=== PATIENT | female | born 1990 | race African-American/Black ===

== ENCOUNTER 2017-04-25 11:17 | Emergency (ER) | payer SELFPAY | END 2017-04-25 13:04 | disposition home or self-care (01) | LOC: ERS 11:17 | DX: M54.5 Low back pain (principal) | CPT/HCPCS: 99283 ==

== ENCOUNTER 2017-09-12 19:26 | Emergency (ER) | payer SELFPAY ==
--- NOTE | 2017-09-12 20:08 | RAD ---
PA AND LATERAL CHEST RADIOGRAPH: Date: 09-12-17 History: Hemoptysis. Comparison: None available. FINDINGS: Cardiac silhouette and pulmonary vasculature are within normal limits. The lungs are clear. Osseous s tructures are intact. IMPRESSION: No acute cardiopulmonary process. POS: [facility]
[2017-09-12 20:35] LABS: #Basophils 0.1 thou/uL (0.0-0.2); #Eosinphils 0.2 thou/uL (0.0-0.7); #Lymphocytes 2.1 thou/uL (1.20-3.40); #Monocytes 0.6 thou/uL (0.11-0.59); #Neutrophils 3.9 thou/uL (1.40-6.50); %Basophils 0.9 % (0.0-1.0); %Eosinophils 2.3 % (0.0-10.0); %Lymphocytes 31.2 % (21.0-51.0); %Monocytes 8.5 % (0.0-10.0); %Neutrophils 57.1 % (42.0-75.0); Hemoglobin 11.3 g/dL (12.0-16.0); Mean Corpuscular Hemoglobin 25.8 pg (27.0-31.0); Mean Corpuscular Volume 80.4 fl (81.0-99.0); Mean Platelet Volume 8.1 fL (7.4-10.4); Platelet Count 339 thou/uL (130-400); RBC Distribution Width 14.9 % (11.5-14.5); Red Blood Cell (RBC) Count 4.39 mill/uL (4.20-5.40); White Blood Cell (WBC) Count 6.8 thou/uL (4.8-10.8)
[2017-09-12 20:43] LABS: Prothrombin Time 13.5 SEC (12.0-14.7)
[2017-09-12 20:58] LABS: ALT (SGPT) 16 U/L (8-55); AST (SGOT) 19 U/L (5-34); Alkaline Phosphatase 65 U/L (40-150); Anion Gap 12 mmol/L (10-20); BUN (Urea Nitrogen) 6 mg/dL (7.0-18.7); Bilirubin, Total 0.2 mg/dL (0.2-1.2); Calc. Creatinine Clearance 0 mL/min (70-130); Carbon Dioxide 21 mmol/L (22-29); Chloride 107 mmol/L (98-107); Estimated GFR-MDRD Greater than 90; Glucose 106 mg/dL (70-105); Potassium 3.5 mmol/L (3.5-5.1); Sodium 136 mmol/L (136-145)
== END 2017-09-12 21:13 | disposition home or self-care (01) ==
LOC: ERS 19:26
DX: R04.2 Hemoptysis (principal)
CPT/HCPCS: 36415; 71046; 80053; 85025; 85610; 85730

== ENCOUNTER 2018-02-07 13:19 | Emergency (ER) | payer OTHER, SELFPAY ==
[2018-02-07] MEDS ORDERED: Ibuprofen 200 MG TAB ONE (14:33)
== END 2018-02-07 14:54 | disposition home or self-care (01) ==
LOC: ERS 13:19
DX: M25.462 Effusion, left knee (principal)
CPT/HCPCS: 99283

== ENCOUNTER 2018-04-22 07:45 | Emergency (ER) | payer OTHER ==
[2018-04-22] MEDS ORDERED: Lidocaine 1% w/Epinephrine 1:100K 20 ML VIAL ONE (07:52)
== END 2018-04-22 14:34 | disposition home or self-care (01) ==
LOC: ERS 07:45
DX: L02.412 Cutaneous abscess of left axilla (principal)
CPT/HCPCS: 10060; J2001

== ENCOUNTER 2018-04-25 11:44 | Emergency (ER) | payer OTHER | END 2018-04-25 12:45 | disposition home or self-care (01) | LOC: ERS 11:44 | DX: Z48.817 Encounter for surgical aftercare following surgery on the skin and subcutaneous tissue (principal) | CPT/HCPCS: 99282 ==

== ENCOUNTER 2018-05-08 14:45 | Emergency (ER) | payer OTHER ==
[2018-05-08] MEDS ORDERED: Meclizine HCl 25 MG TAB ONE (15:32)
[2018-05-08 16:06] LABS: Bilirubin Negative (Negative); Blood, Urine Negative (Negative); Clarity CLEAR (Clear); Glucose, Urine (Dipstick) Negative (Negative); Leukocyte Moderate (Negative); Nitrite Negative (Negative); Protein, Urine (Dipstick) Negative (Neg-Trace); Specific Gravity, Urine 1.022 (1.002-1.036); Urobilinogen 0.2 mg/dL (0.2-1.0); pH, Urine 5.5 (5.0-9.0)
[2018-05-08 16:08] LABS: Pregnancy Test - Urine (BHCG) Negative (Negative); Pregu Control Background? CLEAR/WHITE (CLR/WHITE); Pregu Control Bar Appear? YES (CONTROL BAR); Specific Gravity 1.022 (1.002-1.036)
[2018-05-08 16:11] LABS: Bacteria/HPF None Seen HPF (None Seen); Hyaline Casts/LPF 0-3 HYALINE CAST LPF (0-3 Hyaline); RBC/HPF 0-3 HPF (0-3); WBC/HPF 21-50 HPF (0-3)
[2018-05-08] MEDS ORDERED: Ondansetron ODT 4 MG TAB ONE (17:05)
--- NOTE | 2018-05-14 23:07 | EKG ---
Test Reason : Blood Pressure : / mmHG Vent. Rate : 064 BPM Atrial Rate : 064 BPM P-R Int : 176 ms QRS Dur : 102 ms QT Int : 412 ms P-R-T Axes : -08 030 027 degrees QTc Int : 425 ms Sinus rhythm with marked sinus arrhythmia Otherwise normal ECG Confirmed by LALA WYNN ([id number]), social media editor WAGNER LEDEZMA ([id number] on 05/14/2018 11:06:57 PM Referred By: Confirmed By:LALA WYNN
== END 2018-05-08 17:15 | disposition home or self-care (01) ==
LOC: ERS 14:45
DX: H81.10 Benign paroxysmal vertigo, unspecified ear (principal)
CPT/HCPCS: 81003; 81015; 81025; 93005; Q0162

== ENCOUNTER 2018-08-14 22:45 | Emergency (ER) | payer OTHER ==
--- NOTE | 2018-08-14 23:21 | RAD ---
CHEST TWO VIEWS: HISTORY: Chest pain. COMPARISON: 09/12/2017 FINDINGS: Heart size is normal. Lungs are clear. IMPRESSION: 1. No acute intrathoracic disease. 2. Stable from prior study. POS: [facility]
[2018-08-15] MEDS ORDERED: Ketorolac Tromethamine 60 MG/2 ML VIAL ONE (00:09)
[2018-08-15] MEDS ORDERED: diphenhydrAMINE 25 MG CAP ONE (00:10)
[2018-08-15] MEDS ORDERED: Ondansetron ODT 4 MG TAB ONE (00:10)
== END 2018-08-15 00:44 | disposition home or self-care (01) ==
LOC: ERS 22:45
DX: M94.0 Chondrocostal junction syndrome [Tietze] (principal); R07.89 Other chest pain; R51 Headache; F43.9 Reaction to severe stress, unspecified
CPT/HCPCS: 71046; 93005; 96372; J1885; Q0162; Q0163

== ENCOUNTER 2018-12-08 12:34 | Emergency (ER) | payer OTHER | END 2018-12-08 13:31 | disposition home or self-care (01) | LOC: ERS 12:34 | DX: L02.211 Cutaneous abscess of abdominal wall (principal) | CPT/HCPCS: 99282 ==

== ENCOUNTER 2019-01-10 16:16 | Emergency (ER) | payer OTHER ==
[~2019-01-10 16:16] MED LIST: ISOVUE-370 76%-LOCM 1 ML ONE
[2019-01-10] MEDS ORDERED: Ondansetron PF 4 MG/2 ML Vial ONE (17:14)
[2019-01-10] MEDS ORDERED: Morphine 4 MG/ML VIAL ONE (17:14)
[2019-01-10 17:32] LABS: #Eosinphils 0.1 thou/uL (0.0-0.7); #Monocytes 0.4 thou/uL (0.11-0.59); #Neutrophils 7.1 thou/uL (1.40-6.50); %Basophils 0.3 % (0.0-1.0); %Eosinophils 0.6 % (0.0-10.0); %Lymphocytes 21.1 % (21.0-51.0); %Monocytes 4.5 % (0.0-10.0); %Neutrophils 73.4 % (42.0-75.0); Hemoglobin 14.2 g/dL (12.0-16.0); Mean Corpuscular HGB CONC 31.1 g/dL (32.0-36.0); Mean Corpuscular Hemoglobin 26.4 pg (27.0-31.0); Mean Corpuscular Volume 84.8 fL (78.0-98.0); Mean Platelet Volume 9.1 fL (7.4-10.4); Platelet Count 305 thou/uL (130-400); RBC Distribution Width 14.4 % (11.5-14.5); Red Blood Cell (RBC) Count 5.38 mill/uL (4.20-5.40); White Blood Cell (WBC) Count 9.7 thou/uL (4.8-10.8)
[2019-01-10 17:55] LABS: BHCG - Serum Negative (NEGATIVE); Pregs Control Background? CLEAR/WHITE (CLR/WHITE); Pregs Control Bar Appear? YES (CONTROL BAR)
--- NOTE | 2019-01-10 18:23 | CT ---
CT Abdomen Pelvis W Con: 01/10/2019 4:56 PM CLINICAL INFORMATION: Panic attack. Abdominal and back pain COMPARISON: None. TECHNIQUE: Multiple contiguous axial images were obtained and a CT of the abdomen and pelvis with IV contrast. C oronal reformats were performed. FINDINGS: Lower Chest: within normal limits. Abdomen: Liver: within normal limits. Bile Ducts: Normal caliber. Gallbladder: No calcified gallstones. Normal caliber wall. Pancreas: within normal limits. Spleen: within normal limits. Adrenals: within normal limits. Kidneys: within normal limits. Pelvis: Reproductive Organs: No pelvic masses. A tampon is seen in the vagina. Ureters: within normal limits. Bladder: within normal limits. Peritoneum: No free air no fluid collection. A small amount of free fluid in the pelvis is likely phy siologic. Bowel: Normal caliber. Normal appendix Mesentery and Retroperitoneum: No enlarged mesenteric or retroperitoneal lymph nodes. Vessels: Normal. Abdominal Wall: within normal limits. Bones: Within normal limits IMPRESSION: No evidence of acute intraabdominal\pelvic abnormality.
[2019-01-10 19:10] LABS: ALT (SGPT) 18 U/L (8-55); AST (SGOT) 29 U/L (5-34); Albumin 3.6 g/dL (3.5-5.0); Alkaline Phosphatase 47 U/L (40-150); Anion Gap 14 mmol/L (10-20); BUN (Urea Nitrogen) 8 mg/dL (7.0-18.7); Bilirubin, Total 0.2 mg/dL (0.2-1.2); Calc. Creatinine Clearance 0 mL/min (70-130); Calcium 8.4 mg/dL (7.8-10.44); Carbon Dioxide 18 mmol/L (22-29); Chloride 109 mmol/L (98-107); Estimated GFR-MDRD Greater than 90; Globulin 3.2 g/dL (2.4-3.5); Glucose 93 mg/dL (70-105); Lipase 18 U/L (8-78); Potassium 5.2 mmol/L (3.5-5.1); Protein, Total 6.8 g/dL (6.0-8.3); Sodium 136 mmol/L (136-145)
[2019-01-10 19:21] LABS: Bilirubin Negative (Negative); Blood, Urine 2+ (Negative); Clarity Clear (Clear); Glucose, Urine (Dipstick) Normal (Negative); Leukocyte 25 Leu/uL (Negative); Nitrite Negative (Negative); Protein, Urine (Dipstick) Negative (Neg-Trace); RBC/HPF 21-50 HPF (0-3); Squamous Epithelial 0-3 HPF (0-3); Urobilinogen Normal mg/dL (Less than 2)
== END 2019-01-10 19:54 | disposition home or self-care (01) ==
LOC: ERS 16:16
DX: R10.30 Lower abdominal pain, unspecified (principal); F41.0 Panic disorder [episodic paroxysmal anxiety]
CPT/HCPCS: 36415; 74177; 80053; 81001; 83690; 84703; 85025; 93005; 96361; 96374; 96375; J2270; J2405; Q9966

== ENCOUNTER 2019-08-28 08:48 | Emergency (ER) | payer OTHER, SELFPAY ==
[2019-08-28] MEDS ORDERED: Acetaminophen 500 MG TAB ONE (09:07)
== END 2019-08-28 09:46 | disposition home or self-care (01) ==
LOC: ERS 08:48
DX: J11.1 Influenza due to unidentified influenza virus with other respiratory manifestations (principal)
CPT/HCPCS: 99283

== ENCOUNTER 2021-05-18 17:10 | Emergency (ER) | payer SELFPAY ==
[2021-05-18] MEDS ORDERED: Ibuprofen 800 MG TAB ONE (17:47)
== END 2021-05-18 17:55 | disposition home or self-care (01) ==
LOC: ERS 17:10
DX: K03.81 Cracked tooth (principal); K02.9 Dental caries, unspecified
CPT/HCPCS: 99282

== ENCOUNTER 2022-01-26 04:40 | Emergency (ER) | payer SELFPAY ==
[2022-01-26] MEDS ORDERED: Ketorolac Tromethamine 30 MG/ML VIAL ONE (05:09)
== END 2022-01-26 05:35 | disposition home or self-care (01) ==
LOC: ERS 04:40
DX: S39.012A Strain of muscle, fascia and tendon of lower back, initial encounter (principal); X50.1XXA Overexertion from prolonged static or awkward postures, initial encounter
CPT/HCPCS: 96372; 99283; J1885

== ENCOUNTER 2022-05-09 10:27 | Emergency (ER) | payer SELFPAY ==
[2022-05-09 12:22] LABS: #Eosinphils 0.1 thou/uL (0.0-0.7); #Lymphocytes 1.9 thou/uL (1.20-3.40); #Monocytes 0.3 thou/uL (0.11-0.59); #Neutrophils 3.8 thou/uL (1.40-6.50); %Basophils 0.3 % (0.0-1.0); %Eosinophils 1.7 % (0.0-10.0); %Lymphocytes 30.5 % (21.0-51.0); %Monocytes 5.5 % (0.0-10.0); %Neutrophils 61.9 % (42.0-75.0); Hemoglobin 11.6 g/dL (12.0-16.0); Mean Corpuscular HGB CONC 30.4 g/dL (32.0-36.0); Mean Corpuscular Hemoglobin 25.3 pg (27.0-31.0); Mean Corpuscular Volume 83.1 fl (78.0-98.0); Mean Platelet Volume 8.6 fL (7.4-10.4); Platelet Count 321 thou/uL (130-400); RBC Distribution Width 15.3 % (11.5-14.5); Red Blood Cell (RBC) Count 4.57 mill/uL (4.20-5.40); White Blood Cell (WBC) Count 6.2 thou/uL (4.8-10.8)
[2022-05-09 12:32] LABS: ALT (SGPT) 22 U/L (8-55); AST (SGOT) 19 U/L (5-34); Alkaline Phosphatase 73 U/L (40-110); Anion Gap 11 mmol/L (10-20); BUN (Urea Nitrogen) 6 mg/dL (7.0-18.7); Bilirubin, Total 0.3 mg/dL (0.2-1.2); Calc. Creatinine Clearance 0 mL/min (70-130); Calcium 9.2 mg/dL (7.8-10.44); Carbon Dioxide 28 mmol/L (22-29); Chloride 101 mmol/L (98-107); Estimated GFR 112; Globulin 3.5 g/dL (2.4-3.5); Glucose 91 mg/dL (70-105); Protein, Total 7.5 g/dL (6.0-8.3); Sodium 136 mmol/L (136-145)
== END 2022-05-09 12:07 | disposition home or self-care (01) ==
LOC: ERS 10:27
DX: I10 Essential (primary) hypertension (principal)
CPT/HCPCS: 36415; 80053; 84484; 85025; 99283

== ENCOUNTER 2022-10-29 22:26 | Emergency (ER) | payer BC, SELFPAY ==
[2022-10-29 23:48] LABS: #Lymphocytes 0.7 thou/uL (1.20-3.40); #Monocytes 0.3 thou/uL (0.11-0.59); #Neutrophils 6.1 thou/uL (1.40-6.50); %Basophils 0.4 % (0.0-1.0); %Eosinophils 0.5 % (0.0-10.0); %Lymphocytes 9.7 % (21.0-51.0); %Monocytes 3.8 % (0.0-10.0); %Neutrophils 85.6 % (42.0-75.0); Hemoglobin 11.7 g/dL (12.0-16.0); Mean Corpuscular HGB CONC 30.8 g/dL (32.0-36.0); Mean Corpuscular Hemoglobin 24.8 pg (27.0-31.0); Mean Corpuscular Volume 80.7 fl (78.0-98.0); Platelet Count 292 10x3/uL (130-400); RBC Distribution Width 15.8 % (11.5-14.5); White Blood Cell (WBC) Count 7.1 10x3/uL (4.8-10.8)
[2022-10-29 23:54] LABS: BHCG - Serum Negative (NEGATIVE); Pregs Control Background? CLEAR/WHITE (CLR/WHITE); Pregs Control Bar Appear? YES (CONTROL BAR)
[2022-10-30 00:11] LABS: ALT (SGPT) 22 U/L (8-55); AST (SGOT) 23 U/L (5-34); Albumin 4.2 g/dL (3.5-5.0); Alkaline Phosphatase 74 U/L (40-110); Anion Gap 13 mmol/L (10-20); BUN (Urea Nitrogen) 6 mg/dL (7.0-18.7); Bilirubin, Total 0.4 mg/dL (0.2-1.2); Calc. Creatinine Clearance 0 mL/min (70-130); Calcium 9.1 mg/dL (7.8-10.44); Carbon Dioxide 24 mmol/L (22-29); Chloride 101 mmol/L (98-107); Estimated GFR 105; Globulin 3.6 g/dL (2.4-3.5); Glucose 103 mg/dL (70-105); Lipase 20 U/L (8-78); Magnesium 2.2 mg/dL (1.6-2.6); Potassium 3.6 mmol/L (3.5-5.1); Protein, Total 7.8 g/dL (6.0-8.3); Sodium 134 mmol/L (136-145)
[2022-10-30] MEDS ORDERED: Acetaminophen 500 MG TAB ONE (00:58)
[2022-10-30] MEDS ORDERED: Ondansetron PF 4 MG/2 ML Vial ONE (01:35)
[2022-10-30] MEDS ORDERED: Ketorolac Tromethamine 30 MG/ML VIAL ONE (01:35)
== END 2022-10-30 03:27 | disposition home or self-care (01) ==
LOC: ERS 22:26
DX: R11.2 Nausea with vomiting, unspecified (principal); R19.7 Diarrhea, unspecified
CPT/HCPCS: 36415; 80053; 83690; 83735; 84703; 85025; 96361; 96374; 96375; J1885; J2405

== ENCOUNTER 2023-06-16 17:00 | Outpatient (CLI) | payer BC | END 2023-06-16 17:01 | disposition home or self-care (01) | LOC: SLEEPLAB 17:00 | PROVIDERS: ATTEND Physician Assistant | DX: G47.33 Obstructive sleep apnea (adult) (pediatric) (principal); R51.9 Headache, unspecified; E66.9 Obesity, unspecified; R06.83 Snoring; I10 Essential (primary) hypertension; R53.83 Other fatigue; Z68.41 Body mass index [BMI] 40.0-44.9, adult | CPT/HCPCS: 95810 ==

== ENCOUNTER 2023-08-09 15:16 | Emergency (ER) | payer BC ==
[2023-08-09] MEDS ORDERED: Ketorolac Tromethamine 30 MG (1 mL) VIAL ONE (16:02)
== END 2023-08-09 16:30 | disposition home or self-care (01) ==
LOC: ERS 15:16
DX: M43.6 Torticollis (principal); I10 Essential (primary) hypertension; Z79.899 Other long term (current) drug therapy
CPT/HCPCS: 96372; 99283; J1885